=== PATIENT | female | born 1970 | race African-American/Black ===

== ENCOUNTER 2025-01-06 08:56 | Outpatient (AMB) | payer OTHER, SELFPAY ==
--- NOTE | 2025-01-06 09:06 | AM.OFFWIN_ITS ---
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 Trapezius muscle strain: - The patient reports the onset of sympt oms two days ago after sleeping in an awkward position. - The pain is localized to the left side and was aggravated after raking on Sunday. - Symptoms worsened on the day of the vi sit. - The patient has self-treated with Tyle nol, ibuprofen, and a heating pad. - The patient reports a remote history o f a similar but less severe episode. 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 Problem List - Trapezius muscle strain Plan - A prescription for a muscle relaxer wi ll be sent to the patient's pharmacy, [facility]. - The patient is advised to take the mus moisés relaxer at night, as it may cause fatigue. - Continue taking Advil or ibuprofen as needed for pain management. - Continue with local heat application t o the affected area. - The pain is expected to resolve gradua lly over the next 2-3 days. - The patient is encouraged to perform g entle exercises to improve mobility once she starts feeling better. 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 motor 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 - The pain is localized to the left side and was aggravated after raking on Sunday. - Symptoms worsened on the day of the visit. - The patient has self-treated with Tylenol, ibuprofen, and a heating pad. - The patient reports a remote history of a similar but less severe episode. 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 Problem List - Trapezius muscle strain Plan - A prescription for a muscle relaxer will be sent to the patient's pharmacy, [facility]. - The patient is advised to take the muscle relaxer at night, as it may cause fatigue. - Continue taking Advil or ibuprofen as needed for pain management. - Continue with local heat application to the affected area. - The pain is expected to resolve gradually over the next 2-3 days. - The patient is encouraged to perform gentle exercises to improve mobility once she starts feeling better. Medications: New baclofen 10 mg PO BEDTIME 14 tabs 0RF neck spasm 14 days Coding Level of Care Code New Pt Level 3 (99364) Diagnoses Strain of cervical portion of left trapezius muscle S16.1XXA Cervicalgia M54.2
[2025-01-06 09:08] VITALS: BP 128/80; PULSE 76; TEMP 36.7; O2SAT 98; BMI 31.3
--- OUTSIDE RECORDS SUMMARY | 2025-01-06 09:40 | XMS_ITS | Clinical Summary ---
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 04/22/2022 Active docusate sodium (COLACE) 100 mg capsule Take 1 capsule by mouth twice daily 09/13/2022 Active hydroCHLOROthia zide 12.5 mg tablet Take 1 tablet by mouth once daily 01/16/2023 Active losartan (COZAAR) 50 mg tablet TAKE 1 & 1/2 (ONE & ONE-HALF) TABLETS BY MOUTH ONCE DAILY *DISCONTINUE 25 MG DOSE* 12/11/2022 Active Hospital, Clinic, or Other Facility Administered Medication Ordered Dose Route Frequency Start Date End Date Status copper (PARAGARD) 380 square mm IUDIndications:Encounter for IUD insertion, examination or test, negative result utrn Once 11/13/2024 Active Active Problems Problem Noted Date Diagnosed Date Chronic constipation 07/23/2024 Class 1 obesity 07/23/2024 Hyperlipidemia 07/23/2024 Osteoarthritis of both hips 07/23/2024 Overview (07/23/2024): mild-moderate OA on x-ray from 05/29/24 Right shoulder pain 07/23/2024 Hypertension 09/18/2016 Vitamin D deficiency 06/08/2014 Resolved Problems Problem Noted Date Diagnosed Date Resolved Date Retained intrauterine contra ceptive device (IUD) 09/19/2024 09/24/2024 Encounters Date Type Department Care Team Description 11/13/2024 2:30 PM EDT Procedure visit Obstetrics and Gynecology [address] [id number] Marilia Pittman CNM Encounter for IUD insertion (Primary Dx); examination or test, negative result from Last 3 Months Immunizations Immunization Administration Dates Next Due Tdap Tetanus diptheria acell ular pertussis (Boostrix; Adacel) 7yo and older 12/29/2009 Surgical History Surgery Date Site/Laterality Comments OTHER SURGICAL HISTORY PROCEDURE: NE OPEN TX FRACTURE PHALANX/PHALANGES NOT GREAT TOE Medical History Medical History Date Comments Hypertension DX:Hypertension Vitamin D deficiency 06/08/2014 DX:Vitamin D deficiency Family History Medical History Relation Name Comments Colon polyps Maternal Grandmother Polyp r emoval x 2, biopsy results cancerous Hypertension Mother Breast cancer Neg Hx Ovarian cancer Neg Hx Pancreatic cancer Neg Hx Prostate cancer Neg Hx Relation Name Status Comments Brother Alive Father Alive Maternal Grandmother Mother Alive Social History Tobacco Use Types Packs/Day Years Used Date Smoking Tobacco: Never Smokeless Tobacco: Never Tobacco Cessation:Counseling Given: Not Answered Alcohol Use Standard Drinks/Week Comments Yes 0 (1 standard drink = 0.6 oz pur e alcohol) 1 x a week Comments No Sex and Gender Information Value Date Recorded Sex Assigned at Female 09/22/2024 7:58 AM EDT Legal Sex Female 9:03 AM EST Gender Identity Not on file Sexual Orientation Not on file Obstetrics History Para Term AB IAB SAB Ectopic Multiple Livin g Live Births 2 2 2 2 2 Date Outcome GA Total Labor Labor/2nd/3rd Weight Sex Type Anes PTL Ирина A1 A5 Name Clin 03/05 Term F Vag-S pont Living Charley Complications:None 09/01 Term F Vag-S pont Living Mariann bower Complications:None Last Filed Vital Signs Vital Sign Reading Time Taken Comments Blood Pressure 126/78 11/13/2024 2:37 PM EDT Pulse 82 11/13/2024 2:37 PM EDT Temperature 36.4 C (97.6 F) 09/24/2024 8:50 AM EDT Respiratory Rate 16 09/24/2024 8:50 AM EDT Oxygen Saturation 100% 09/24/2024 8:50 AM EDT Inhaled Oxygen Concentration - - Weight 89.4 kg (197 lb) 11/13/2024 2:37 PM EDT Height 167.6 cm (5' 6 ) 07/23/2024 3:50 PM EDT Body Mass Index 31.8 07/23/2024 3:50 PM EDT Plan of Treatment Upcoming Encounters Date Type Department Care Team (Late st Contact Info) Description 01/23/2025 2:30 PM EST Office Visit Obstetrics and Gynecology - [address] [phone] Marilia Pittman, [facility] [address] [place] [address] Health Maintenance Due Date Last Done Comments Breast Cancer Screening 1970 Hepatitis B Vaccines (1 of 3 - 19+ 3-dose series) 08/11/1990 Pneumococcal Vaccine: 50+ Years (1 of 1 - PCV) 08/11/2021 Zoster Vaccines (1 of 2) 08/11/2021 HIV Screening 02/11/2022 Hepatitis C Screening 02/11/2022 Social Influencers of Health Screening 02/11/2022 Hypertension/CHF/CAD Annual BMP Blood Test 10/06/2022 10/06/2021 Depression Screening 03/05/2024 COVID-19 Vaccine ( season) 2024 03/10/2022, 02/04/2021, 04/19/2020, Additional history exists Influenza Vaccine (#1) 2024 , 03/10/2022, 02/04/2021 Cholesterol Screening (Lipid Panel) 10/06/2026 10/06/2021 Cervical Cancer Screening: HPV 06/30/2027 06/29/2022 Colorectal Cancer Screening: Colonoscopy 05/05/2032 05/05/2022 DTaP,Tdap,and Td Vaccines (3 - Td or Tdap) 05/29/2034 05/29/2024, 12/29/2009 RSV Immunization Adult Patients (1 - 1-dose 75+ series) 08/11/2046 HIB Vaccines Aged Out No longer eligi ble based on patient's age to complete this topic HPV Vaccines Aged Out No longer eligi ble based on patient's age to complete this topic Hepatitis A Vaccines Aged Out No long er eligible based on patient's age to complete this topic IPV Vaccines Aged Out No longer eligi ble based on patient's age to complete this topic MMR Vaccines Aged Out No longer eligi ble based on patient's age to complete this topic Meningococcal ACWY Vaccine Aged Out N o longer eligible based on patient's age to complete this topic Meningococcal B Vaccine Aged Out No l onger eligible based on patient's age to complete this topic RSV Immunization Patients Under 20 months Aged Out No longer eligible based on patient's age to complete this topic Varicella Vaccines Aged Out No longer eligible based on patient's age to complete this topic Procedures Procedure Name Priority Date/Time Associated Diagnosis Comments NE INSERTION INTRAUTERINE DEVICE Routine 11/13/2024 4:10 PM EDT Encounter for IUD insertion examination or test, negative result POC , URINE DIAGNOSTIC Routine 11/13/2024 2:41 PM EDT examination or test, negative result HPV Routine 06/29/2022 COLONOSCOPY Routine 05/05/2022 ANNUAL BMP BLOOD TEST Routine 10/06/2021 LIPID PANEL Routine 10/06/2021 from Last 3 Months or Most Recently Relevant to Health Maintenance Results * NE INSERTION INTRAUTERINE DEVICE (11/13/2024 4:10 PM EDT) Marilia Martinez CNM - 11/13/2024 4:10 PM EDT Marilia Pittman CNM 11/13/2024 4:11 PM IUD Insertion Date/Time: 11/13/2024 4:10 PM Performed by: Marilia Pittman CNM Authorized by: Marilia Pittman CNM Informed Consent: Patient questions answered: yes Patient agrees, verbalizes understanding, and wants to proceed: yes Consent given by: Patient Informed consent discussion completed by Physician/TANYA with patient: Written; patient signed and dated; copy to patient Pre Procedure: Negative urine test: Yes Gonorrhea/chlamydia test: Negative Uterine position: Midline Insertion Procedure: Speculum placed in vagina and cervix prepped with: Betadine Cervix stablized: With tenaculum IUD type: ParaGard IUD insertion successful: yes Medication Administration: 1 Intra Uterine Device copper 380 square mm Complications: no Strings trimmed: yes Post-procedure: Post procedure instructions given: yes Patient will follow up for string check: yes Result [facility] Marilia Pittman CNM IN CLINIC/BEDSIDE ORDERABLES Fi nal Result * POC , urine manually resulted (11/13/2024 2:41 PM EDT) [facility] HCG, Ur POC Negative Negative POC hCG Int QC Pass? Yes Yes Urine Urine specimen obtained by clean catch procedure / Unknown 11/13/2024 2:41 PM EDT Result [facility] Marilia Pittman CNM POINT OF CARE TEST ENTER/EDIT O RDERABLES Final Result * Cervical Cancer Screening: HPV (06/29/2022) [facility] Cervical Cancer Screening: HPV normal, abstracted [facility] Provider HEALTH MAINTENANCE Final Result * Colonoscopy (05/05/2022) [facility] Colonoscopy no interpretation , abstracted Anatomical Region Laterality Modality Other [facility] Provider HEALTH MAINTENANCE Final Result * Annual BMP Blood Test (10/06/2021) [facility] Annual BMP Blood Test abstracted [facility] Provider HEALTH MAINTENANCE Final Result * (ABNORMAL) Lipid panel (10/06/2021) [facility] LDL/HDL Ratio 3 0 - 4 Triglycerides 49 0 - 150 mg/dL Cholesterol 217(A) 0 - 200 mg/dL HDL 76 >=40 mg/dL LDL Cholesterol 132(A) 0 - 100 mg/dL Blood Venous blood specimen / Unknown us Historical Provider LAB BLOOD ORDERABLES Sakshi l Result from Last 3 Months or Most Recently Relevant to Health Maintenance Insurance [facility] Care Teams 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
--- OUTSIDE RECORDS SUMMARY | 2025-01-06 09:40 | XMS_ITS ---
Author Name [facility] Organization Unknown Care Team Organization Name Specialty Phone Email Start Date End Da te [facility] Primary Care 01/10/2022 10/22/19 24
== END 2025-01-06 09:21 | disposition home or self-care (01) ==
PROVIDERS: Visit Provider Internal Medicine
DX: S16.1XXA Strain of muscle, fascia and tendon at neck level, initial encounter (principal); M54.2 Cervicalgia

== ENCOUNTER 2025-01-12 09:11 | Emergency (ER) | payer OTHER, SELFPAY ==
[2025-01-12 09:30] VITALS: BP 158/78; PULSE 66; RESP 18; TEMP 36.3; O2SAT 98; BMI 31.3
--- NOTE | 2025-01-12 10:24 | ED_ITS ---
HPI - General Adult General Chief complaint: Neck Pain/Injury Stated complaint: shoulder pain Time Seen by Provider: 01/12/25 10:24 Source: patient Mode of arrival: ambulatory Limitations: no limitations History of Present Illness ED Provider: Tricia Wheatley PA-C HPI narrative: Patient is a 54 year old assigned female at with no reported medical history presenting to the emergency department today with left sided neck pain that radiates into the shoulder. Patient states that over the last 6 days she has had left sided neck pain and tightness with pain that is now radiating into her left shoulder. Patient states that she was taking baclofen which helped some but not enough. Patient denies any other complaints at this time. Related Data Home Medications ?Medication ?Instructions ?Recorded ?Confirmed hydrochlorothiazide 12.5 mg tablet 12.5 mg PO DAILY 01/06/25 losartan 50 mg tablet 50 mg PO DAILY 01/06/2506/27 Previous Rx's ?Medication ?Instructions ?Recorded baclofen 10 mg tablet 10 mg PO BEDTIME neck spasm 14 01/06/25 days #14 tabs cyclobenzaprine 5 mg tablet 5 mg PO TID PRN muscle spa sm 7 01/12/25 days #21 tabs prednisone 20 mg tablet 40 mg (2 x 20 mg) PO DAILY C OPD 01/12/25 exacerbation 5 days #10 tabs Allergies Allergy/AdvReac Type Severity Reaction Status Date / Time No Known Allergies Allergy Verified 01/12/25 09:33 Review of Systems Constitutional: Constitutional: Reports as per HPI Eyes: Eyes: Reports as per HPI ENT: Reports as per HPI Cardiovascular: Cardiovascular: Reports as per HPI Respiratory: Respiratory: Reports as per HPI Gastrointestinal: Gastrointestinal: Reports as per HPI Genitourinary: Genitourinary: Reports as per HPI Musculoskeletal: Musculoskeletal: Reports as per HPI Integumentary/Breasts: Skin/Breast: Reports as per HPI Neurologic: Reports as per HPI Psychiatric: Psychiatric: Reports as per HPI Endocrine: Endocrine: Reports as per HPI Hematologic/Lymphatic: Hematologic/Lymphatic: Reports as per HPI Allergic/Immunologic: Allergic/Immunologic: Reports as per HPI PMF Past Medical History Attestation statement: The following information was validated with the patient. Source: old records reviewed and nursing notes reviewed Social History Social History Advance Directives: No Advance Directives Information Provided: No Physical Exam ED Vital Signs: Vital Signs - 24 hr 01/12/25 09:30 01/12/25 10:39 Temperature 97.4 F 97.4 F Pulse Rate 66 66 Respiratory Rate 18 18 Blood Pressure 158/78 H 158/78 H Pulse Oximetry 98 98 Oxygen Delivery Method Room Air Room Air BMI result Body Mass Index 31.3 Const General: cooperative, no acute distress, alert and awake Nutritional Appearance: well nourished Orientation/consciousness: patient oriented x3 HENMT Head: Yes normal to inspection and Yes atraumatic Ears: hearing grossly normal bilaterally and external ears normal General nose exam: Normal external nose present, no nasal discharge noted and no epistaxis Face and sinus: Yes normal facial exam, No abrasion and No laceration Mouth: Normal oral and palatal mucosa present, no drooling and no muffled voice Eyes General: appearance normal, both eyes and all related structures Periorbital: periorbital findings normal Eyelids: Yes eyelids normal Conjunctivae: conjunctivae normal Pupils: Equal, round and reactive pupils present EOM: EOMs intact bilaterally Neck Other: Limited ROM of the neck to the right secondary to pain from the left side Neck: Yes normal visual inspection Resp Effort & Inspection: normal respiratory effort and able to speak in complete sentences Neuro General: patient oriented x3, moves all extremities and CN's II-XI intact bilaterally Cranial nerves: Yes Equal, round and reactive pupils present Cognition (Neuro): normal cognition Extrem General: Yes normal to inspection, Yes full ROM and Yes capillary refill normal Psych Appearance: grossly normal Mental Status: mental status grossly normal Affect: normal affect Attitude: cooperative Thought process: Normal thought process present Thought content: Normal thought content present Insight: Good insight present (Psych) Medical Decision Making Medical Decision Making MDM Narrative: Patient is a 54 year old assigned female at with no reported medical history presenting to the emergency department today with left sided neck pain that radiates into the shoulder. Patient's physical exam was as noted in the physical exam portion of this note and consistent with a left sided cervical radiculopathy secondary to a muscle spasm. I explained my physical exam findings to the patient. I answered all questions asked by the patient. I explained to the patient that imaging is not usually warranted for a clinical presentation like this and given she has already been on Baclofen, we'll switch to Flexeril and add Prednisone with a referral to a male infertility specialist. I had a lengthy discussion with the patient about avoiding chiropractors and instead utilizing a massage therapist and possibly physical therapy. I stressed the importance of the patient taking her medication as directed (either prescribed or as the over the counter packaging recommends). I stressed the importance of the patient following up with her primary care provider and a male infertility specialist. I stressed the importance of the patient returning to the emergency department immediately if her symptoms were to worsen or if she were to develop any dizziness, shortness of breath, difficulty breathing, chest pain, blurry vision, loss of vision, nausea, vomiting, abdominal pain, fever, chills, back pain, or any other complaints. Patient verbalized agreement and understanding with this treatment plan and discharge. Differential Diagnosis Differential Diagnoses: The differential diagnosis associated with the presentation includes Left sided cervical spasm Cervical radiculopathy Muscle spasm Admission/Observation Consideration of admission/observation: Escalation of care including admission/observation considered Patient would have been admitted to the hospital had her clinical presentation warranted hospital admission. Tests considered The following testing was considered but not selected: I considered obtaining a CT scan of the cervical spine however, the patient's current clinical presentation did not warrant this at this time. Prescription Management I considered prescription management with: Pain Medication (patient prescribed pain medication as noted in the MDM rationale portion of this note. ) Discharge Plan Discharge Clinical Impression: Cervical radiculopathy Patient Disposition: Home, Self-Care Instructions: Cervical Radiculopathy (ED) Additional Instructions: Take your medication as prescribed. Apply heat to the area (with a layer protecting your skin from the heat source). Follow up with the male infertility specialist. IF you are prescribed home medications and/or you are taking over the counter medications at home - it is very important you continue to do so as prescribed / directed unless told otherwise. Follow up with your primary care provider. Return to the emergency department immediately if your symptoms worsen or if you develop any numbness, tingling, dizziness, shortness of breath, difficulty breathing, chest pain, blurry vision, loss of vision, nausea, vomiting, abdominal pain, fever, chills, back pain, or any other complaints. Please see the information below about our Patient Portal. If you are not yet enrolled in the [facility] Patient Portal, you will receive an enrollment email invitation following your visit to any [facility] setting. You may also self-enroll in the Patient Portal by visiting our website: [email or web address] The following information is required to access the Patient Portal: - Your [facility] Medical Record Number - Your personal home email address (must match what is in your electronic medical record, Registration staff can assist with this) - Name - Date of Capabilities of the Patient Portal: - Message some providers - View upcoming appointments - Access your health summary, medical history, and visit history - View current conditions and allergies - View procedure and lab results - View your medications, including guidelines, side effects, and precautions - Complete pre-appointment questionnaires requested by your provider - Ready summary reports of your office visits and procedures To access the Patient Portal Mobile [employer], follow these directions: - Search [employer] in the [employer] Store or [employer] Store - Download the [employer] - Search for [facility] - Enter your login/password Prescriptions: New cyclobenzaprine 5 mg tablet 5 mg PO TID PRN (Reason: muscle spasm) 7 Days Qty: 21 0RF prednisone 20 mg tablet 40 mg PO DAILY 5 Days Qty: 10 0RF No Action losartan 50 mg tablet 50 mg PO DAILY hydrochlorothiazide 12.5 mg tablet 12.5 mg PO DAILY baclofen 10 mg tablet 10 mg PO BEDTIME 14 Days Qty: 14 0RF Referrals: [facility] [Provider Group, Neurosurgery] Referral Note: Call to establish and follow up with a male infertility specialist. Jessenia Weathers NP [Primary Care Provider, Internal Medicine] Interventions: ED Discharge Assessment Last Done: 01/12/25 10:39 Discharge Date/Time: 01/12/25 10:40 Print Language: Ghanaian
[2025-01-12 10:39] VITALS: BP 158/78; PULSE 66; RESP 18; TEMP 36.3; O2SAT 98
--- OUTSIDE RECORDS SUMMARY | 2025-01-12 12:16 | XMS_ITS | Clinical Summary ---
Author Organization [facility] [address] [place] [address] Address [address] [place] [address] Phone Care Team Providers Care Group Fitness Department Head Name Role Phone Johana Elliott MD Primary Care Provider [phone] Allergies Active Allergy Reactions Criticality Noted Date [...] PM EDT Procedure visit Obstetrics and Gynecology [address] [id number] Marilia Pittman CNM Encounter for IUD insertion (Primary Dx); examination or test, negative result from Last 3 Months Immunizations Immunization Administration Dates Next Due Tdap Tetanus diptheria acell ular pertussis (Boostrix; Adacel) 7yo and older 12/29/2009 Surgical History Surgery Date Site/Laterality Comments OTHER SURGICAL HISTORY PROCEDURE: HI OPEN TX FRACTURE PHALANX/PHALANGES NOT GREAT TOE [...] EST Office Visit Obstetrics and Gynecology - [address] [phone] Marilia Pittman, [facility] [address] [place] [address] Health Maintenance Due Date Last Done Comments [...] Procedure Name Priority Date/Time Associated Diagnosis Comments HI INSERTION INTRAUTERINE DEVICE Routine 11/13/2024 4:10 PM EDT Encounter for IUD insertion examination or test, negative result POC , URINE DIAGNOSTIC Routine 11/13/2024 2:41 PM EDT examination or test, negative result HPV Routine 06/29/2022 COLONOSCOPY Routine 05/05/2022 ANNUAL BMP BLOOD TEST Routine 10/06/2021 LIPID PANEL Routine 10/06/2021 from Last 3 Months or Most Recently Relevant to Health Maintenance Results * HI INSERTION INTRAUTERINE DEVICE (11/13/2024 4:10 PM EDT) [...] follow up for string check: yes Result [facility] Marilia Pittman CNM IN CLINIC/BEDSIDE ORDERABLES Fi nal Result * POC , urine manually resulted (11/13/2024 2:41 PM EDT) [facility] HCG, Ur POC Negative Negative POC hCG Int QC Pass? Yes Yes Urine Urine specimen obtained by clean catch procedure / Unknown 11/13/2024 2:41 PM EDT Result [facility] Marilia Pittman CNM POINT OF CARE TEST ENTER/EDIT O RDERABLES Final Result * Cervical Cancer Screening: HPV (06/29/2022) [facility] Cervical Cancer Screening: HPV normal, abstracted [facility] Provider HEALTH MAINTENANCE Final Result * Colonoscopy (05/05/2022) [facility] Colonoscopy no interpretation , abstracted Anatomical Region Laterality Modality Other [facility] Provider HEALTH MAINTENANCE Final Result * Annual BMP Blood Test (10/06/2021) [facility] Annual BMP Blood Test abstracted [facility] Provider HEALTH MAINTENANCE Final Result * (ABNORMAL) Lipid panel (10/06/2021) [facility] LDL/HDL Ratio 3 0 - 4 Triglycerides 49 0 - 150 mg/dL Cholesterol 217(A) 0 - 200 mg/dL HDL 76 >=40 mg/dL LDL Cholesterol 132(A) 0 - 100 mg/dL Blood Venous blood specimen / Unknown us Historical Provider LAB BLOOD ORDERABLES Sakshi l Result from Last 3 Months or Most Recently Relevant to Health Maintenance Insurance FOR[facility]LY [facility] Care Teams Group Fitness Department Head Relationship Specialty Start Date End Date Johana Elliott MD [address] [place] [address] [address] [place] [address] PCP - General Internal Medicine 05/20/24
== END 2025-01-12 10:40 | disposition home or self-care (01) ==
PROVIDERS: Emergency Provider Emergency Medicine; PCP Nurse Practitioner Family
DX: M54.12 Radiculopathy, cervical region (principal)
CPT/HCPCS: 99282; 99283